=== PATIENT | male | born 1945 | race Caucasian/White ===

== ENCOUNTER 2024-06-01 09:17 | Day surgery (SDC) | payer MEDICARE, OTHER ==
[2024-05-25 15:20] LABS: BILIRUBIN,URINE NEGATIVE (Neg); CLARITY,URINE CLEAR (Clear); COLOR,URINE YELLOW (Yellow); GLUCOSE, URINE NEGATIVE (Neg); KETONES,URINE NEGATIVE (Neg); LEUKOCYTE ESTERASE ,URINE NEGATIVE (Neg); NITRITES, URINE NEGATIVE (Neg); OCCULT BLOOD,URINE NEGATIVE (Neg); PH,URINE 5.5 (4.8-8.0); PROTEIN,URINE NEGATIVE (Neg); UROBILINOGEN,URINE 0.2 E.U/dL (0.2-1.0)
[2024-05-25 15:26] LABS: BASOPHILS # (AUTO) 0.1 X10'3 (0-0.2); BASOPHILS % (AUTO) 1.2 % (0-1); EOSINOPHILS # (AUTO) 0.2 X10'3 (0-0.9); EOSINOPHILS % (AUTO) 3.6 % (0-6); LYMPHOCYTES % (AUTO) 18.4 % (21-51); MEAN CORPUSCULAR HEMOGLOBIN 31.2 PG (27.0-31.0); MEAN CORPUSCULAR VOLUME 91.9 FL (78-98); MEAN PLATELET VOLUME 7.9 FL (7.4-10.4); MONOCYTES # (AUTO) 0.7 X10'3 (0-0.9); MONOCYTES % (AUTO) 12.5 % (2-12); NEUTROPHILS # (AUTO) 3.4 X10'3 (1.8-7.7); NEUTROPHILS % (AUTO) 64.3 % (42-75); PRE OP HEMATOCRIT 46.2 % (42.0-52.0); PRE OP HEMOGLOBIN 15.7 g/dL (14.0-17.9); PRE OP PLATELET COUNT 190 X10'3 (140-440); PRE OP WHITE BLOOD COUNT 5.3 10'3 (4.8-10.8); RED BLOOD COUNT 5.02 X10'6 (4.70-6.10)
[2024-05-25 15:37] LABS: UA COLLECTION TYPE VOIDED
[2024-05-25 15:43] LABS: ALBUMIN 3.6 G/DL (3.4-5.0); ALBUMIN/GLOBULIN RATIO 1.1 (1.1-1.5); ALKALINE PHOSPHATASE 62 IU/L (46-116); BLOOD UREA NITROGEN 27 MG/DL (7-18); BUN/CREATININE RATIO 25.2 (10.0-20.0); CALCIUM 8.8 MG/DL (8.5-10.1); CHLORIDE 107 MMOL/L (99-107); CREATININE 1.07 MG/DL (0.60-1.10); PRE OP ALT 26 U/L (30-65); PRE OP ANION GAP 4 (8-16); PRE OP AST 28 U/L (10-37); PRE OP BILIRUB, TOTAL 0.6 MG/DL (0.0-1.0); PRE OP GLUCOSE 89 MG/DL (70-104); PRE OP POTASSIUM 4.5 MMOL/L (3.4-5.1); PRE OP SODIUM 141 MMOL/L (135-145); TOTAL CARBON DIOXIDE 29.6 MMOL/L (24-32); TOTAL PROTEIN 6.9 G/DL (6.4-8.2); eGFR 67 ML/MIN
[~2024-06-01] VITALS: Ht 185.4 cm; Wt 89.2 kg
[~2024-06-01 09:17] MED LIST: ATOR20TA PO; DABI150C PO; DOCUMENT DATE & TIME OF BETA-BLOCKER PO ONE; FLEC100T35 PO; FLO0.4C PO; MAGN420T PO; PROP10TA10 PO
[2024-06-01 09:26] VITALS: BP 142/92; PULSE 68; RESP 16; TEMP 97.9; O2SAT 96
[2024-06-01] MEDS: VANCOMYCIN/WATER FOR INJ (PEG) 1.5GM/300 ML IVPB IV ONE (10:19)
[2024-06-01] MEDS: famotidine 20mg tablet PO ONE (10:19)
[2024-06-01] MEDS: ringers solution, lacted 1,000 ML IV SCH (10:19)
[2024-06-01] MEDS ORDERED: bacitracin 15gm ointment TP ONE (13:16)
[2024-06-01] MEDS ORDERED: BUPIVAcaine 2.5mg/ml inj 50ml vial (contains preservative) ONE (13:16)
[2024-06-01] MEDS ORDERED: midazolam 1 mg/ML 2ml injection ONE (13:38)
[2024-06-01] MEDS ORDERED: fentaNYL/PF 50MCG/1 ML 2ML syringe ONE (13:38)
[2024-06-01] MEDS ORDERED: ceFAZolin 2gm in dextrose, iso 2,000 MG/50 ML BAG IV ONE (13:40)
[2024-06-01] MEDS ORDERED: propofol inj 20 ML IV ONE (14:46)
[2024-06-01] MEDS ORDERED: ROPIVAcaine 0.5% (5mg/ml) 30ml vial ONE (14:46)
[2024-06-01] MEDS ORDERED: ePHEDrine 50MG/ML INJ. ONE (14:46)
[2024-06-01] MEDS ORDERED: dexamethasone sod phosphate 4mg/ml inj. ONE (14:46)
[2024-06-01] MEDS ORDERED: acetaminophen 1,000mg/100ml IV 100 ML IV ONE (14:46)
[2024-06-01] MEDS: bacitracin 15gm ointment TP ONE (15:19)
[2024-06-01 15:35] VITALS: BP 124/84; PULSE 51; RESP 16; O2SAT 97
[2024-06-01 15:40] VITALS: BP 126/83; PULSE 51; RESP 17; O2SAT 97
[2024-06-01 15:50] VITALS: BP 122/83; PULSE 50; RESP 16; O2SAT 96
[2024-06-01 16:00] VITALS: BP 133/83; PULSE 50; RESP 13; O2SAT 94
[2024-06-01 16:10] VITALS: BP 131/80; PULSE 52; RESP 15; O2SAT 95
== END 2024-06-01 16:55 | disposition home or self-care (01) ==
LOC: PAS 09:17
PROVIDERS: ATTEND Podiatrist Foot & Ankle Surgery
DX: M19.072 Primary osteoarthritis, left ankle and foot (principal); M25.472 Effusion, left ankle; Q68.8 Other specified congenital musculoskeletal deformities; M19.90 Unspecified osteoarthritis, unspecified site; I10 Essential (primary) hypertension; Z79.899 Other long term (current) drug therapy; Z98.890 Other specified postprocedural states; Z96.653 Presence of artificial knee joint, bilateral; Z88.0 Allergy status to penicillin; Z79.82 Long term (current) use of aspirin; Z72.89 Other problems related to lifestyle
CPT/HCPCS: 20902; 28120; 28725; 36415; 73630; 80053; 81003; 82948; 85025; 93005; A4618; A6223; A6253; A6402; A6449; C1713; C1769; J0131; J0690; J1100; J1885; J2250; J2405; J2704; J2795; J3010; J3372; J3490; J7030; J7120; Z7506; Z7508; Z7512; Z7610; 76000

== ENCOUNTER 2024-08-18 09:16 | Day surgery (SDC) | payer MEDICARE, OTHER ==
[2024-08-17 11:04] VITALS: BP 118/90; PULSE 80; RESP 16; O2SAT 95
[~2024-08-18] VITALS: Ht 185.4 cm; Wt 88.5 kg
[~2024-08-18 09:16] MED LIST changes: -DOCUMENT DATE & TIME OF BETA-BLOCKER PO ONE; -FLO0.4C PO; +TAMS-55 PO
--- NOTE | 2024-08-18 09:40 | ELECTROCARDIOGRAPH REPORT ---
[facility] [place] Test Date: 2024-08-18 Test Time: 09:37:07 Pat Name: AN HALL Department: [facility] Patient ID: [id number] Room: Gender: M Design Maker: CAROLINE : 1945 Requested By: LISA DUMONT Order Number: [id number] Reading MD: Dr. DALTON Yousif Measurements Intervals [place] Rate: 116 P: 0 SD: 0 QRS: 36 QRSD: 102 T: -9 QT: 355 QTc: 494 Interpretive Statements Atrial flutter with predominant 2:1 AV block Low voltage, precordial leads Borderline T abnormalities, diffuse leads Minimal ST elevation, inferior leads Borderline prolonged QT interval Electronically Signed On 08-18-2024 19:06:[address] DALTON Yousif Please click the below link to view image of tracing.
[2024-08-18 09:45] VITALS: BP 122/89; PULSE 108; RESP 16; TEMP 98.4; O2SAT 97
[2024-08-18] MEDS ORDERED: fentaNYL/PF 50MCG/1 ML 2ML syringe IV ONE (09:55)
[2024-08-18] MEDS ORDERED: MIDAZolam 1mg/ml 10ml vial IV ONE (09:55)
[2024-08-18] MEDS ORDERED: AMI200T PO (09:56)
[2024-08-18 10:15] LABS: BASOPHILS % (AUTO) 0.7 % (0-1); EOSINOPHILS # (AUTO) 0.1 X10'3 (0-0.9); EOSINOPHILS % (AUTO) 1.4 % (0-6); HEMATOCRIT 39.8 % (42.0-52.0); HEMOGLOBIN 13.5 g/dl (14.0-17.9); LYMPHOCYTES % (AUTO) 16.5 % (21-51); MEAN CORPUSCULAR HEMOGLOBIN 30.9 PG (27.0-31.0); MEAN CORPUSCULAR VOLUME 90.9 FL (78-98); MEAN PLATELET VOLUME 7.8 FL (7.4-10.4); MONOCYTES # (AUTO) 0.6 X10'3 (0-0.9); MONOCYTES % (AUTO) 9.9 % (2-12); NEUTROPHILS # (AUTO) 4.2 X10'3 (1.8-7.7); NEUTROPHILS % (AUTO) 71.5 % (42-75); PLATELET COUNT 238 X10'3 (140-440); RED BLOOD COUNT 4.38 X10'6 (4.70-6.10); RED CELL DISTRIBUTION WIDTH 13.5 % (11.5-14.5); WHITE BLOOD COUNT 5.8 X10'3 (4.5-11.0)
[2024-08-18] MEDS ORDERED: heparin 1,000unit/ml 10ml vial 10 ML ONE (10:15)
[2024-08-18] MEDS ORDERED: midazolam 1 mg/ML 2ml injection ONE ×3 (10:19→10:39)
[2024-08-18] MEDS ORDERED: fentaNYL/PF 50MCG/1 ML 2ML syringe ONE (10:19)
[2024-08-18] MEDS: heparin 10,000 units/1 ML INJ IV ONE (10:22)
[2024-08-18] MEDS ORDERED: atropine 0.1mg/ml 10ml syringe ONE (10:22)
[2024-08-18] MEDS: normal saline 1000ml 1,000 ML IV SCH (10:22)
[2024-08-18] MEDS ORDERED: amiodarone 50MG/ML inj IV ONE ×2 (10:22→10:23)
[2024-08-18 10:23] LABS: INR 1.1 INR
[2024-08-18 10:33] LABS: ALBUMIN 3.3 G/DL (3.4-5.0); ANION GAP 8 (8-16); BLOOD UREA NITROGEN 18 MG/DL (7-18); BUN/CREATININE RATIO 15.9 (10.0-20.0); CALCIUM 8.9 MG/DL (8.5-10.1); CHLORIDE 106 MMOL/L (99-107); CREATININE 1.13 MG/DL (0.60-1.10); GLUCOSE 91 MG/DL (70-104); SODIUM 143 MMOL/L (135-145); TOTAL CARBON DIOXIDE 28.7 MMOL/L (24-32); eCRCL 62 ML/MIN; eGFR 63 ML/MIN
[2024-08-18 11:15] VITALS: BP 119/89; PULSE 80; RESP 14; O2SAT 96
[2024-08-18 11:30] VITALS: BP 116/86; PULSE 80; RESP 10; O2SAT 97
--- NOTE | 2024-08-18 11:36 | GI LAB REPORT ---
DATE OF PROCEDURE: 08/18/2024 DICTATING PHYSICIAN: LISA DUMONT DO PROCEDURE NOTE PROCEDURE: DC cardioversion. PREPROCEDURAL DIAGNOSIS: Atrial fibrillation. POSTPROCEDURAL DIAGNOSIS: Atrial fibrillation, converted to sinus rhythm/atrial pacing. DESCRIPTION OF PROCEDURE: The patient was sedated with fentanyl and Versed. He was then given one 200 joule synchronized shock resulting in conversion to sinus rhythm followed by atrial pacing. COMPLICATIONS: There were no complications. PLAN: Ongoing medical therapy. FINAL DIAGNOSIS: Atrial fibrillation, cardioverted to sinus rhythm/atrial pacing. LISA DUMONT DO TID: [id number] RECEIPT: [id number] VERA/NATE
[2024-08-18 11:45] VITALS: BP 115/87; PULSE 80; RESP 16; O2SAT 95
[2024-08-18 11:55] VITALS: BP 105/88; PULSE 80; RESP 14; O2SAT 95
== END 2024-08-18 12:00 | disposition home or self-care (01) ==
LOC: SSTAY O 09:16
PROVIDERS: ATTEND Internal Medicine Cardiovascular Disease
DX: I48.0 Paroxysmal atrial fibrillation (principal); I42.9 Cardiomyopathy, unspecified; I48.3 Typical atrial flutter; I10 Essential (primary) hypertension; Z79.01 Long term (current) use of anticoagulants; Z98.890 Other specified postprocedural states
CPT/HCPCS: 36415; 80048; 85025; 85610; 92960; 93005; 99152; J1644; J2250; J3010; J7030; Z7610; J0282; J0461

== ENCOUNTER 2024-09-08 07:03 | Day surgery (SDC) | payer MEDICARE, OTHER ==
[~2024-09-08] VITALS: Ht 185.4 cm; Wt 85.1 kg
[2024-09-08] VITALS (8 sets, daily range): BP systolic 118–143; BP diastolic 83–102; PULSE 60–80; RESP 11–16; TEMP 97.3; O2SAT 96–98
[~2024-09-08 07:03] MED LIST changes: +AMI200T PO; -FLEC100T35 PO; -TAMS-55 PO
--- NOTE | 2024-09-08 07:42 | ELECTROCARDIOGRAPH REPORT ---
[facility] Test Date: 2024-09-08 Test Time: 07:41:16 Pat Name: AN HALL Department: [facility] Patient ID: [id number] Room: Gender: M Morning Babysitter: CAROLINE : 1945 Requested By: LISA DUMONT Order Number: [id number] Reading MD: Dr. Enoc Walton Measurements Intervals [place] Rate: 80 P: 0 FL: 0 QRS: 35 QRSD: 108 T: 16 QT: 443 QTc: 512 Interpretive Statements Accelerated junctional rhythm Low voltage, precordial leads Prolonged QT interval Electronically Signed On 09-08-2024 8:26:[address] Enoc Walton Please click the below link to view image of tracing.
[2024-09-08] MEDS ORDERED: vancomycin/NS 1 GM ADD-VANTAGE 200 ML IV ONE (07:55)
[2024-09-08] MEDS ORDERED: VANCOMYCIN 1GM 200ML H20 (PEG) 200 ML IV ONE (07:55)
[2024-09-08] MEDS ORDERED: clindamycin-Cleocin 900mg/D5W 50 ML IV SCH (08:00)
[2024-09-08 08:22] LABS: BASOPHILS % (AUTO) 1.7 % (0-1); EOSINOPHILS # (AUTO) 0.2 X10'3 (0-0.9); EOSINOPHILS % (AUTO) 6.8 % (0-6); HEMOGLOBIN 14.7 g/dl (14.0-17.9); LYMPHOCYTES # (AUTO) 0.8 X10'3 (1.1-4.8); LYMPHOCYTES % (AUTO) 25.9 % (21-51); MEAN CORPUSCULAR HEMOGLOBIN 30.9 PG (27.0-31.0); MEAN CORPUSCULAR HGB CONC 34.1 g/dL (33.0-36.5); MEAN CORPUSCULAR VOLUME 90.7 FL (78-98); MEAN PLATELET VOLUME 7.6 FL (7.4-10.4); MONOCYTES # (AUTO) 0.5 X10'3 (0-0.9); MONOCYTES % (AUTO) 15.6 % (2-12); NEUTROPHILS # (AUTO) 1.5 X10'3 (1.8-7.7); PLATELET COUNT 178 X10'3 (140-440); RED BLOOD COUNT 4.75 X10'6 (4.70-6.10); RED CELL DISTRIBUTION WIDTH 13.7 % (11.5-14.5)
[2024-09-08] MEDS ORDERED: MULT-1085 PO (08:26)
[2024-09-08] MEDS ORDERED: TAMS-55 PO (08:26)
[2024-09-08] MEDS ORDERED: VITC500T PO (08:26)
[2024-09-08 08:29] LABS: INR 1.1 INR
[2024-09-08 08:31] LABS: ALBUMIN 3.6 G/DL (3.4-5.0); ANION GAP 8 (8-16); BLOOD UREA NITROGEN 16 MG/DL (7-18); BUN/CREATININE RATIO 12.5 (10.0-20.0); CHLORIDE 109 MMOL/L (99-107); CREATININE 1.28 MG/DL (0.60-1.10); GLUCOSE 91 MG/DL (70-104); MAGNESIUM 2.2 MG/DL (1.5-2.4); POTASSIUM 3.9 MMOL/L (3.5-5.1); SODIUM 144 MMOL/L (135-145); TOTAL CARBON DIOXIDE 27.1 MMOL/L (24-32); eCRCL 55 ML/MIN; eGFR 54 ML/MIN
[2024-09-08] MEDS: vancomycin/NS 1 GM ADD-VANTAGE 250 ML IV ONE (08:33)
[2024-09-08 08:47] LABS: PROTHROMBIN TIME 11.5 SECONDS (9.0-12.0)
[2024-09-08] MEDS ORDERED: LIDOcaine 1% W/epiNEPHrine 1:100,000 20ml vial ONE ×3 (08:58→11:34)
[2024-09-08] MEDS ORDERED: iohexol 350 MG/ML 50ML vial IV ONE ×2 (08:58→10:59)
[2024-09-08] MEDS ORDERED: vancomycin 1,000mg inj ONE (08:58)
[2024-09-08] MEDS ORDERED: fentaNYL/PF 50MCG/1 ML 2ML syringe ONE ×3 (08:58→11:56)
[2024-09-08] MEDS ORDERED: midazolam 1 mg/ML 2ml injection ONE ×3 (08:58→10:09)
[2024-09-08 09:18] LABS: TOTAL CELLS COUNTED 100
[2024-09-08 09:25] LABS: BASOPHILS % (MANUAL) 0 % (0-1); EOSINOPHILS % (MANUAL) 2 % (0-6); LYMPHOCYTES % (MANUAL) 15 % (21-51); MONOCYTES % (MANUAL) 22 % (2-12); NEUTROPHILS % (MANUAL) 61 % (42-75)
[2024-09-08 09:26] LABS: PLATELET ESTIMATE NORMAL
[2024-09-08] MEDS ORDERED: phenylephrine 10mg/ml inj. ONE (10:29)
[2024-09-08] MEDS ORDERED: CLIN300C17 PO (12:59)
--- NOTE | 2024-09-08 16:04 | CARDIOLOGY REPORT ---
DATE OF SERVICE: 09/08/2024 DICTATING PHYSICIAN: LISA DUMONT DO CARDIAC CATHETERIZATION REPORT [employer]: Lisa Dumont DO CLINICAL HISTORY: This 78-year-old man has a dilated cardiomyopathy and sick sinus syndrome prompting placement of a dual-chamber defibrillator in 2016. The generator is now at the elective replacement interval, but in addition, the right ventricular defibrillator sense-pace lead is broken and is not sensing appropriately and has a very high impedance on the shocking coil. PROCEDURES PERFORMED: * Left upper extremity venography. * Extraction of the existing left-sided pacemaker defibrillator pulse generator. * Implant of a new dual-chamber pacemaker defibrillator with atrial and ventricular electrodes (right side). * Three hours conscious sedation supervision. PREOPERATIVE DIAGNOSES: * Cardiomyopathy (most recent LVEF 30%). * Sick sinus syndrome. * Dual-chamber pacemaker pulse generator at the elective replacement interval. * Fractured right ventricular/ICD electrode. * Implant of new dual-chamber pacemaker pulse generator with endocardial electrodes (right side). POSTOPERATIVE DIAGNOSES: * Cardiomyopathy (most recent LVEF 30%). * Sick sinus syndrome. * Dual-chamber pacemaker pulse generator at the elective replacement interval. * Fractured right ventricular/ICD electrode. * Implant of new dual-chamber pacemaker pulse generator with endocardial electrodes (right side). * Three hours conscious sedation supervision. ANESTHESIA: Conscious sedation with local to skin. DEVICE REMOVED: Medtronic pacemaker defibrillator pulse generator, model number KPFB6G6 and serial number [id number]. ABANDONED/CAPPED ELECTRODES (LEFT SIDE): Medtronic atrial electrode model number 6935M and serial number [id number]; Medtronic atrial electrode model number 5076 and serial number [id number]. DEVICES IMPLANTED: Medtronic RV ICD electrode model number 6935 and serial number [id number]; Medtronic atrial electrode model number 4076 and serial number [id number]; Medtronic pulse generator model number [id number] and serial number [id number]. DESCRIPTION OF THE PROCEDURE: The patient was sedated with fentanyl and Versed. He was then prepared and draped in the usual manner. 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 The old pulse generator site (left side) was opened incising just above the head of the generator. The device was then dissected from a subpectoral location. The generator was removed. Each lead was capped. The leads were put back in the pocket. The submuscular pocket was closed loosely with 3-0 Vicryl. The subcutaneous layer of the skin was closed with 3-0 Vicryl and surgical clips were used for closure of the skin. The incision line was then covered with medical adhesive and properly bandaged. The patient was newly prepped for access on the right side. The right pectoral region was liberally infiltrated with 1% lidocaine. Using a micropuncture set, a small guidewire was placed in the right subclavian vein. A new pocket was created by incising just below the clavicle. A subcutaneous pocket was created with electrocautery. A pocket in the submuscular area was created at a later time. Using the retained guidewire, a 9.5-Wallisian dilator and sheath assembly was placed in the subclavian vein. Using this sheath, the right ventricular electrode was passed into the right atrium, prolapsed across the tricuspid valve and then placed/attached to the low interventricular septum. The screw was extended. The stylet was withdrawn and sensing and pacing evaluation demonstrated an R-wave amplitude of 5.9 millivolts and impedance of 418 ohms, a high voltage impedance of 50 ohms, and a threshold for capture of 0.75 volts. Using the same Seldinger technique, a 7-Wallisian sheath was also placed in the right subclavian vein. Using this sheath, the right atrial electrode was passed into the right atrium, positioned in the mid right atrium. The screw was extended. The stylet was withdrawn and sensing and pacing evaluation ultimately demonstrated a P-wave amplitude of 1 millivolt, an impedance of 988 ohms, and a threshold for capture of 0.5 volts. The sheaths were removed and a 3-0 Vicryl suture was placed around the electrodes at their exit point from the pectoral fascia. The electrodes were then further secured to the pectoral fascia using 2-0 Ethibond sutures around the suturing sleeve. Next, the electrodes were attached to the generator. The subpectoral pocket was created and the generator and electrodes were placed in this pocket. The entire pocket was liberally flushed with vancomycin antibiotic solution. The submuscular pocket was loosely closed with 2 Vicryl sutures. The subcutaneous skin layer was closed with 3-0 Vicryl and surgical ced were used to close the skin. Medical adhesive was also placed over the incision line. The site was dressed and the procedure was concluded. There were no complications. ESTIMATED BLOOD LOSS: About 15 mL. INITIAL PANKAJ PARAMETERS WERE FOLLOWS: Mode AAIR/DDDR/MVP, LRL 60 BPM. Upper activity 120 BPM. Upper tracking rate 130 BPM. Paced AV delay 130 milliseconds. Sensed AV delay 100 milliseconds. Amplitude pulse width and sensitivity on both electrodes was set at 3.5 volts, 0.4 milliseconds, and 0.3 millivolts, respectively. For the ventricular tachyarrhythmia management algorithms, please see the Medtronic implant record. A chest x-ray was pending at the time of this dictation. LISA DUMONT DO TID: [id number] RECEIPT: [id number] KONG BROWN
== END 2024-09-08 15:03 | disposition home or self-care (01) ==
LOC: SSTAY O 07:03
PROVIDERS: ATTEND Internal Medicine Cardiovascular Disease
DX: T82.110A Breakdown (mechanical) of cardiac electrode, initial encounter (principal); I49.5 Sick sinus syndrome; I42.0 Dilated cardiomyopathy; I10 Essential (primary) hypertension; Y83.8 Other surgical procedures as the cause of abnormal reaction of the patient, or of later complication, without mention of misadventure at the time of the procedure; I48.0 Paroxysmal atrial fibrillation; Z79.01 Long term (current) use of anticoagulants
CPT/HCPCS: 33249; 36415; 80048; 83735; 85025; 85610; 93005; 99152; 99153; A4565; C1721; C1895; C1898; J2250; J2371; J3010; J3370; J3490; J7030; Q9967; Z7610; 85007